=== PATIENT | male | born 1945 | race Caucasian/White ===

== ENCOUNTER 2018-09-01 16:31 | Inpatient (IN) ==
[2018-09-01] MEDS ORDERED: TYLENOL PO PRN (16:45)
[2018-09-01] MEDS ORDERED: SODIUM CHLORIDE 0.9% INJ PRN (16:45)
[2018-09-01] MEDS ORDERED: PHENERGAN IV PRN (16:45)
[2018-09-01 17:17] LABS: BASO# 0.01 X1000 (0.0-0.2); BASO% 0.3 % (0.0-0.8); EOS# 0.04 X1000 (0.0-0.7); EOS% 1.1 % (0.0-10.0); HEMATOCRIT 39.9 % (42.0-52.0); HEMOGLOBIN 13.5 g/dL (14.0-18.0); LYMPH# 0.55 X1000 (1.2-3.4); LYMPH% 15.7 % (20.5-51.1); MCH 29.9 PG (27-31); MCHC 33.8 g/dL (33-37); MCV 88.3 FL (81-99); MONO# 0.24 X1000 (0.11-0.59); MONO% 6.9 % (1.7-9.3); MPV 9.7 FL (7.4-10.4); NEUT# 2.66 X1000 (1.4-6.5); PLT 148 X1000 (130-400); RBC 4.52 XMIL (4.7-6.1); RDW 14.7 % (11.5-14.5)
[2018-09-01] MEDS: NS 1,000 ML IV SCH (17:25)
[2018-09-01 17:32] LABS: CALCIUM 8.9 mg/dL (8.8-10.2); CREATININE 1.3 mg/dL (0.7-1.2); POTASSIUM 4.6 mmol/L (3.5-5.1)
[2018-09-01] MEDS ORDERED: LEVAQUIN 250 MG/D5W 250 MG/50 ML IVPB IV SCH (17:45)
[2018-09-01 18:15] LABS: URINE SOURCE CATH
[2018-09-01 18:18] LABS: UR EPITHELIAL CELLS <10 /HPF (<10); URINE BACTERIA NEGATIVE /HPF; URINE RBC <10 /HPF (<10); URINE WBC <10 /HPF (<10)
[2018-09-01 18:21] LABS: BILIRUBIN URINE SMALL (NEGATIVE); BLOOD URINE LARGE (NEGATIVE); COLOR RED; GLUCOSE URINE TRACE mg/dL (NEGATIVE); KETONE URINE TRACE mg/dL (NEGATIVE); LEUKOCYTES URINE NEGATIVE (NEGATIVE); NITRITE URINE NEGATIVE (NEGATIVE); PH URINE 8.5; PROTEIN URINE 600 mg/dL (NEGATIVE); SP GRAVITY URINE 1.028; TURBIDITY URINE TURBID (CLEAR); UROBILINOGEN URINE 2 mg/dL (NORMAL)
[2018-09-01] MEDS: ALTACE PO SCH (22:44)
[2018-09-02] MEDS: NS 1,000 ML IV SCH ×2 (05:29→20:58)
--- NOTE | 2018-09-02 07:13 | PROGRESS NOTE ---
DATE: 09/02/2018 SUBJECTIVE: Mr. Bryant continues with persistent hematuria. He denies any dysuria, increased urinary frequency, or low back pain. He had a biopsy 1 week ago for a suspicious mass on the anterior left aspect of the urinary bladder. Pathology demonstrated scar tissue. He was noted to have several stable tiny stones bilaterally in each kidney. Blood pressure is well controlled. Systolic blood pressures range from 127 to 131, whereas his diastolic blood pressures have been in the 70s. He denies any chest pain, palpitations, or anginal equivalents. OBJECTIVE: Vital Signs: Temperature 97.4 degrees, pulse 59, BP 131/72, respiratory rate 16. CV: Regular rate and rhythm. Lungs: Clear. Abdomen: Soft, nontender, with active bowel sounds. No hepatosplenomegaly. No abdominal bruits. LABORATORY DATA: A CBC demonstrated a white count of 3.5, hemoglobin 13.5, hematocrit 39.9, and a platelet count of 148,000. Electrolytes demonstrate the following: Sodium 141, potassium 4.6, BUN 19, creatinine 1.3, and glucose 173. ASSESSMENT AND PLAN: Hematuria. I suspect that the hematuria is the result of his recent bladder biopsy. He resumed aspirin and Mobic 2 days after the biopsy. I will go ahead and recheck a CT renal stone search to make sure that there is no evidence of a renal stone in the ureter. If there is no obvious stone, he may require bladder irrigation if the hematuria persists. cc: Marlen Edmond MD
--- NOTE | 2018-09-02 07:28 | HISTORY AND PHYSICAL ---
CHIEF COMPLAINT: Gross hematuria. HISTORY OF PRESENT ILLNESS: Mr. Jose Francisco Bryant is a 73-year-old, gentleman who is well known to me. He has a history of multiple medical problems including essential hypertension, mixed hyperlipidemia, ischemic heart disease, status post coronary artery bypass graft surgery, history of prostate cancer, status post radical prostatectomy. He presented to the office with complaint of gross hematuria. He has been passing persistent bright red blood. He has had difficulty urinating at times. He has a persistent urge to urinate. He was having intense bladder spasms. He denied any low back pain, CVA tenderness, fever, or chills. He had recently undergone a biopsy of a bladder mass which, fortunately, was nonmalignant. He had resume both meloxicam and aspirin 2 days after the procedure. PAST MEDICAL HISTORY: As above. PAST SURGICAL HISTORY: Coronary artery bypass graft surgery, radical prostatectomy, stretching of multiple urethral strictures, bladder biopsy. ALLERGIES: Iodine. FAMILY HISTORY: Noncontributory. SOCIAL HISTORY: He does not smoke. He does not consume alcoholic beverages. He is and lives with his . MEDICATIONS: Aspirin 325 mg daily, Vytorin 10/80 one at bedtime, meloxicam 7.5 mg daily, ramipril 10 mg b.i.d. REVIEW OF SYSTEMS: Constitutional: He denies any recent weight gain or weight loss. HEENT: He wears glasses. CV: No chest pain, palpitations, or anginal equivalents. Pulmonary: No shortness of breath, PND, or orthopnea. GI: No reflux, dysphagia, melena, hematochezia, change in bowel habits, or rectal bleeding. Endocrine: No polyuria. No polydipsia. No cold or heat intolerance. Skin: No easy bruisability. : See HPI. Neurologic: No migraines or seizures. PHYSICAL EXAMINATION: GENERAL: This is a well-developed, well-nourished, 73-year-old, gentleman in no apparent distress. VITAL SIGNS: Temperature 97.9 degrees, pulse 76, respirations 20, BP 106/60. HEENT: Fundi with arteriolar wall thickening. Pupils equal, round, reactive to light. Extraocular eye movements intact. TMs without bullae. NECK: Supple. No masses, JVD, or bruits. CV: Regular rate and rhythm. LUNGS: Clear. ABDOMEN: Soft, nontender, with active bowel sounds. No hepatosplenomegaly. No abdominal bruits. EXTREMITIES: Without edema. SKIN: No palpable purpura. GENITOURINARY/RECTAL: Examinations deferred. NEUROLOGIC: Nonfocal. ASSESSMENT AND PLAN: 1. Gross hematuria. He had a recent CT scan that demonstrated multiple small bilateral renal stones that were stable within the kidneys themselves. He is not having any significant low back pain or flank pain. He had a recent bladder biopsy. I suspect that he has blood clots which are obstructing blood flow. I am going to admit him to [facility]. I will begin normal saline at 75 mL per hour. I will place a Luna catheter. We will hold the aspirin and Mobic. We will follow his blood counts. I will check a CT renal stone search. If the hematuria does not resolve spontaneously, he may need bladder irrigation. 2. Hypertension. His blood pressure is stable. We will continue ramipril 10 mg twice a day. 3. Mixed hyperlipidemia. We will continue Vytorin 10/80 one at bedtime. 4. Ischemic heart disease. Aware. Given his comorbid conditions and clinical presentation, I believe that admission to the hospital for further evaluation and management is indicated at this point in time. I anticipate that he will be in the hospital for at least 1 midnight and I will, therefore, place him in outpatient status with observation services. Given that he is actively bleeding, I will hold Lovenox and heparin as deep venous thrombosis prophylaxis. We will begin intermittent pneumatic compression hose. cc: Marlen Edmond MD
[2018-09-02 07:59] LABS: HEMATOCRIT 37.6 % (42.0-52.0); HEMOGLOBIN 12.9 g/dL (14.0-18.0)
[2018-09-02 08:11] LABS: AGAP 10; BUN 18 mg/dL (8-22); CHLORIDE 107 mmol/L (98-107); COSMO 282; CREATININE 0.8 mg/dL (0.7-1.2); ESTIMATED GFR > 60; GLUCOSE 112 mg/dL (70-104); POTASSIUM 4.3 mmol/L (3.5-5.1); SODIUM 140 mmol/L (136-145); TCO2 23 mmol/L (25-35)
[2018-09-02] MEDS: ALTACE PO SCH ×2 (08:43→20:59)
--- NOTE | 2018-09-02 08:55 | Diag Imaging Result Doc PS360 ---
EXAM: CT RENAL STONE SEARCH INDICATION: hematuria TECHNIQUE: This exam was performed using automated exposure control, adjustment of mA or kV according to patient size, and/or use of iterative reconstruction technique. COMPARISON: 07/29/2018 FINDINGS: There is subsegmental atelectasis at the lung bases. The liver, gallbladder, spleen, pancreas, and adrenal glands are essentially unremarkable. There is bilateral nonobstructive nephrolithiasis. There are no ureteral stones and there is no hydronephrosis. There is a densely calcified left renal nodule. Both renal cortices are lobulated suggesting persistent lobulations. There are a few hyperdense nodules that are stable and probably represent blood containing renal cysts but are technically nonspecific by unenhanced study. There is a Luna catheter in urinary bladder. There is a large amount of hyperdense material layering in the urinary bladder consistent with blood products. The urinary bladder mass inferiorly on the left seen previously is essentially stable. There is mild uncomplicated diverticulosis coli. The GI tract is essentially unremarkable and stable, otherwise. IMPRESSION: 1.Large amount of hyperdense material in the urinary bladder indicating blood products. 2.Bilateral nonobstructive nephrolithiasis. 3.Other incidental/nonacute findings detailed above that are stable as compared to the recent previous study. Electronically signed by Jj Hardy 09/02/2018 8:53 AM
[2018-09-02] MEDS ORDERED: ZETIA PO SCH (09:00)
[2018-09-02] MEDS ORDERED: ZOCOR PO SCH (09:00)
[2018-09-02] MEDS ORDERED: PATIENT'S OWN MED PO SCH (09:00)
--- NOTE | 2018-09-02 16:52 | PROGRESS NOTE ---
DATE: 09/02/2018 SUBJECTIVE: Mr. Bryant was admitted to [facility] with gross hematuria. A CT scan demonstrated small multiple stones in the kidneys bilaterally, without evidence of hydronephrosis. He had a large amount of clot in the bladder. Dr. Mejia saw the patient in consultation and irrigated the bladder. Initially the urine output was more clear, but when I saw him this afternoon, he had persistent gross hematuria. He denies any dysuria or increased urinary frequency. A urine culture was negative. PHYSICAL EXAMINATION: Vital Signs: Temperature 98.1 degrees, pulse 65, BP 128/57. Cardiovascular: Regular rate and rhythm. Lungs: Clear. Abdomen: Soft, nontender, with active bowel sounds. ASSESSMENT AND PLAN: Gross hematuria. He still seems to have a large amount of clot within the bladder. Mr. Bryant told me that Dr. Mejia was going to see him later this afternoon and consider irrigating the bladder again. If the irrigation under bladder does not work, he may require surgical procedure to remove the clot. Given his comorbid conditions and clinical presentation, I anticipate he will now be in the hospital at least 2 midnights. I will therefore change him to inpatient status. With his heart disease, significant anemia could lead to anginal- type symptoms. We will continue to hold heparin, Lovenox, aspirin, and Mobic because of active bleeding. cc: Marlen Edmond MD
--- NOTE | 2018-09-02 23:10 | CONSULTATION ---
DATE OF CONSULTATION: 09/02/2018 CHIEF COMPLAINT: Gross hematuria. HISTORY OF PRESENT ILLNESS: Mr. Bryant is a 73-year-old male with a history of hypertension, hyperlipidemia, ischemic heart disease status post coronary artery bypass graft, history of prostate cancer status post radical prostatectomy, who presented to Dr. Ibanez for evaluation of a bladder mass. The patient underwent cystoscopy which was negative for intravesicular tumor and ultimately had a CT of the abdomen and pelvis performed which showed a nodule present external to the bladder. The patient subsequently underwent a transrectal ultrasound and biopsy of this lesion by Dr. Ibanez last week. The patient had some hematuria directly after the procedure, but this resolved after he emptied his bladder with passage of some clots. His urine remained clear, and the patient was started back on his aspirin. After starting his aspirin, he noticed he had some more difficulty urinating and began passing bright red blood. He had significant urge to urinate and was unable to completely empty his bladder. This led to significant bladder spasms and abdominal pain. The patient went to his primary care physician who evaluated the patient and recommended admission for his hematuria, placed a urethral catheter, and obtained a CT scan. The CT scan showed a large clot burden within the bladder itself as well as multiple stones within the kidney with no evidence of hydronephrosis. The patient denies any fevers or chills or CVA tenderness. The patient states that he has been taking his aspirin and meloxicam until presenting to Dr. Edmond' office, and he said he started this approximately 2 days after his procedure. The patient currently denies any spasms and states his urethral catheter has been draining mostly bloody urine. PAST MEDICAL HISTORY: 1. Prostate cancer, status post prostatectomy. 2. Coronary artery disease, status post coronary artery bypass graft. 3. Hyperlipidemia. 4. Essential hypertension. PAST SURGICAL HISTORY: 1. Coronary artery bypass graft. 2. Radical prostatectomy. 3. History of urethral stricture disease, status post dilation. 4. Transrectal ultrasound-guided biopsy of extravesical lesion. ALLERGIES: Iodine. FAMILY HISTORY: Denies malignancy. SOCIAL HISTORY: Denies tobacco, alcohol, or illicit drug use. HOME MEDICATIONS: 1. Aspirin 325 mg. 2. Vytorin 10/80. 3. Meloxicam 7.5 mg. 4. Ramipril 10 mg b.i.d. REVIEW OF SYSTEMS: Twelve-point review of systems performed with all pertinent positives and negatives as in HPI. PHYSICAL EXAMINATION: Vital Signs: Temperature 98.1 degrees, heart rate 65, blood pressure 136/62, oxygen saturation 96% on room air. General: No acute distress. Resting comfortably in bed. Alert and oriented x3. HEENT: Normocephalic, atraumatic. Pupils equal, round, and reactive to light. Mucous membranes moist. Good dentition. Neck: Trachea midline with no obvious deformities. Cardiovascular: Regular rate and rhythm. Lungs: Clear to auscultation bilaterally with no audible wheezing or rales. Abdomen: Soft, nontender, nondistended. No palpable masses. Extremities: Moving all extremities. Skin: No obvious skin rashes or lesions. Genitourinary Exam: Ureteral catheter in place draining dark reddish urine. Several clots are present in bag. The meatus was visualized at the glans and a small amount of erythema. The patient has retracted foreskin with evidence of paraphimosis. Bilateral testicles palpated without masses or nodularity. Neurologic: Gross motor and sensory intact. LABORATORIES: Hemoglobin 12.9, hematocrit 37.6. Sodium 140, potassium 4.3, chloride 107, bicarb 23, BUN 18, creatinine 0.8, glucose 112. IMAGING DATA: CT abdomen and pelvis reviewed which showed multiple stones in the kidney, mostly bilateral small stones. However, there is a larger stone that appears to be likely in a caliceal diverticulum versus a possible calcified renal cyst. Within the bladder, the urethral catheter is present with a large amount of clot, with a slightly distended bladder. ASSESSMENT AND PLAN: Mr. Bryant is a 73-year-old with history of hypertension, hyperlipidemia, prostate cancer status post prostatectomy, coronary artery disease status post coronary artery bypass graft, who presents in consultation regarding urinary retention with hematuria. The patient underwent a biopsy of an extravesical lesion by Dr. Ibanez in [place] and has developed hematuria since then. The biopsy was reported as negative. Due to the patient's prior history of prostate cancer, it was thought it may be a metastatic lesion. The patient has previously undergone cystoscopy which showed no lesions in his bladder itself. CT scan done yesterday does show a large clot burden within the bladder. The patient had a 16-Cymro Luna catheter in place yesterday. I removed this and exchanged it for a 22-Cymro silicone catheter. In the process, I irrigated out a significant amount of clots, and his urine did improve with light reddish to pink urine, with no significant clots that were be able to be removed. I irrigated with approximately 1 L of fluid, at which time I reduced his paraphimosis. The patient did have a slight amount of erythema to the glans of the penis, likely related to his paraphimosis as well as repeated catheterizations. I came back later and again irrigated his bladder and retrieved several more syringes of clot. His urine was significantly improved, a light pink. I think I have removed a large portion of the clots in his bladder, however, uncertain if he still has some residual clot as he has persistent hematuria at this time. Recommended making NPO at midnight in case he needs a procedure done tomorrow. We will plan to evaluate in the morning and consideration for cystoscopy and clot evacuation and fulguration of bleeding. If his urine clears up overnight, we will hold off on any surgical intervention. The patient previously had been cystoscopically evaluated with no evidence of any mucosal abnormalities in the bladder itself. It is likely that on the biopsy of the lesion extravesical to the bladder, it stirred up some bleeding related to that as he does describe passing clots right after his procedure. We will continue to monitor clinically. He appears to be hemodynamically stable, and his bladder spasms seem to have significantly improved. We will continue to monitor. Please call with questions or concerns. cc: MD Marlen Montilla MD MTD
[2018-09-03 07:02] LABS: HEMATOCRIT 35.9 % (42.0-52.0); HEMOGLOBIN 12.2 g/dL (14.0-18.0)
[2018-09-03 07:35] VITALS: BP 127/74
--- NOTE | 2018-09-03 07:45 | PROGRESS NOTE ---
DATE: 09/03/2018 SUBJECTIVE: No acute events overnight. The patient's Luna catheter is draining clear yellow urine this morning. Several small clots are present within the catheter. The patient states that he feels better today. His vital signs are all within normal limits. His hematocrit is 35.9, which is relatively stable from 37.6 yesterday. Denies any pain. He says he slept comfortably overnight. OBJECTIVE: Vital Signs: Temperature 97.7 degrees, heart rate 66, blood pressure 134/76, oxygen saturation 95% on room air. General: No acute distress. Resting comfortably in bed. Respiratory: Good respiratory effort without audible wheezing or rales. Abdomen: Soft, nontender, nondistended. No palpable masses. : A small amount erythema of the glans, which has improved. Urethral catheter in place with clear yellow urine. One or two small clots present within the catheter tubing. The patient has no suprapubic tenderness. No CVA tenderness. Musculoskeletal: Moving all extremities without issue. LABORATORY DATA: Hemoglobin 12.2, hematocrit 35.9. ASSESSMENT AND PLAN: Mr. Bryant is a 73-year-old with hypertension, hyperlipidemia, prostate cancer status post prostatectomy, coronary artery disease status post coronary artery bypass graft, who presents for consultation regarding hematuria and large clot burden within the bladder. Overall, it seems that the patient has improved. I irrigated a large amount of clots yesterday through a silicone catheter. His urine today is crystal clear with only a small amount of clot present. Overall, I think he has improved significantly since yesterday. I recommended removal of his catheter today and forgoing surgical intervention as his urine has cleared overnight. I told him that he may continue to pass some small clots. If he develops worsening hematuria or inability to urinate due to clots, I would subsequently have to take him to the operating room and do cystoscopy and clot evacuation. The patient's vital signs are all stable. His hematocrit seems to remain stable today at 35.9 from 37.6. No evidence of tachycardia or hypotension. Will continue to monitor. I recommended removal of his catheter and having a postvoid residual. If he continues do well, he potentially could be discharged per hospitalist recommendations. cc: MD Marlen Montilla MD MTDD
--- NOTE | 2018-09-03 10:33 | DISCHARGE SUMMARY ---
ADMISSION DATE: 09/01/2018 DISCHARGE DATE: 09/03/2018 DISCHARGE DIAGNOSES: 1. Gross hematuria. 2. Essential hypertension. 3. Ischemic heart disease without angina. 4. Mixed hyperlipidemia. 5. Osteoarthritis involving multiple joints. 6. History of prostate cancer. 7. History of prostate biopsy. 8. History of a recent bladder biopsy. DISCHARGE INSTRUCTIONS: 1. Return to clinic in 1 week to see me Dr. Antonio Edmond in anticipation of a transition of care visit. 2. Activity as tolerated. 3. Healthy heart diet. DISCHARGE MEDICATIONS: 1. Tylenol 650 mg q.6 hours p.r.n. pain. 2. Multivitamin 1 p.o. daily. 3. Zetia 10 mg daily. 4. Zocor 80 mg at bedtime. 5. Ramipril 10 mg b.i.d. DISCHARGE PHYSICAL EXAMINATION: This is a well-developed, well-nourished 73-year-old gentleman in no apparent distress. He is afebrile. Pulse 79, respiratory rate 21 and BP 127/74. CV: Regular rate and rhythm. Lungs: Clear. Abdomen: Soft and nontender with active bowel sounds. No hepatosplenomegaly. No abdominal bruits. REASON FOR ADMISSION/HOSPITAL COURSE: Mr. Jose Francisco Bryant is a 73-year-old gentleman with a history of prostate cancer status post radical prostatectomy in the remote past. On a recent CT scan, he had what appeared to be a bladder mass. Dr. Alvares performed a biopsy of the aforementioned mass. Fortunately, pathology demonstrated scar tissue and no evidence of malignancy. Mr. Bryant resumed aspirin and meloxicam two days after his biopsy. The patient presented to my office with gross hematuria and passing large amounts of blood clots. At times, he had difficulty voiding. A CT scan of the abdomen and pelvis demonstrated small bilateral stones in each kidney but no ureteral stones, obstruction or hydronephrosis. He was noted to have a large amount of clot in the bladder. We held the aspirin and meloxicam. We placed a Luna catheter which helped to relieve the bladder spasms. We placed him on oral Levaquin pending urine cultures. Urine culture was negative. I consulted Dr. Mejia who irrigated his bladder on two different occasions. This morning his urine appeared clear. Dr. Mejia did not feel that he needed to go to the OR for cystoscopy and clot evacuation. His Luna catheter was discontinued. He was able to void without further episodes of hematuria. Should the hematuria recur, he would most likely need cystoscopy with clot evacuation. Having reached maximum hospital benefit, the patient was discharged in stable condition. cc: Marlen Edmond MD
== END 2018-09-03 09:21 | disposition home or self-care (01) | DRG 921 ==
LOC: DIRADM → 3N 16:31
PROVIDERS: ADMIT Internal Medicine; ATTEND Internal Medicine
CPT/HCPCS: 74176; 80048; 81001; 85014; 85018; 85025; 87088; A9270; J1956; J7030